=== PATIENT | male | born 1940 | race Caucasian/White ===

== ENCOUNTER 2018-08-01 10:14 | Emergency (ER) | payer OTHER ==
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
[2018-08-01] MEDS ORDERED: TETANUS & DIPHTHERIA TOX,ADULT 0.5 ML VIAL ONE (12:11)
[2018-08-01 12:21] VITALS: BP 134/72; TEMP 98.1; O2SAT 96
== END 2018-08-01 12:17 | disposition home or self-care (01) ==
LOC: ER 10:14
DX: T24.202A Burn of second degree of unspecified site of left lower limb, except ankle and foot, initial encounter (principal); T31.0 Burns involving less than 10% of body surface; X08.8XXA Exposure to other specified smoke, fire and flames, initial encounter; Y93.9 Activity, unspecified; Y92.009 Unspecified place in unspecified non-institutional (private) residence as the place of occurrence of the external cause; Z23 Encounter for immunization; I10 Essential (primary) hypertension
CPT/HCPCS: 90714; 99283

== ENCOUNTER 2018-08-04 14:30 | Observation (INO) | payer OTHER ==
[2018-08-04 15:31] VITALS: BMI 30.9
[2018-08-04] MEDS ORDERED: INFLUENZA VACCINE (for 3y+) 0.5 ML DOSE IMVAC ONE (16:00)
[2018-08-05 07:00] LABS: Urine Appearance CLEAR; Urine Bilirubin NEGATIVE (NEG); Urine Blood NEGATIVE (NEG); Urine Color YELLOW; Urine Glucose NEGATIVE (NEG); Urine Protein NEGATIVE (NEG); Urine Urobilinogen 0.2 mg/dL (0.2-1.0)
[2018-08-05 07:13] LABS: Urine Microscopic Reflex NO UMIC
[2018-08-05] MEDS ORDERED: ACETAMINOPHEN 500 MG TAB PO PRN (09:35)
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
[2018-08-05] MEDS ORDERED: TRAMADOL HCL 50 MG TAB PO PRN (11:21)
[2018-08-05] MEDS ORDERED: HYDROCODONE/APAP 7.5/325 MG TAB PO PRN (11:21)
[2018-08-05 11:51] LABS: Absolute Lymphocytes (CBC) 1.2 K/uL (0.7-4.9); Absolute Monocytes 0.4 K/uL (0.1-1.3); Absolute Neutrophil 2.9 K/uL (1.8-8.0); Basophils % 1.2 % (0-1.3); Hematocrit 38.9 % (39.6-49.0); Lymphocytes % 25.3 % (15.3-44.8); MCV 90.7 fL (80-100); MPV 9.7 fL (7.6-11.3); RBC Red Blood Cell Count 4.29 M/uL (4.33-5.43)
[2018-08-05] MEDS ORDERED: Levofloxacin500mg IV 500 MG/100 ML BAG IV SCH (12:00)
[2018-08-05 12:30] LABS: Magnesium 2.2 mg/dL (1.8-2.4); Potassium 4.7 mmol/L (3.5-5.1)
[2018-08-05] MEDS ORDERED: VANCOMYCIN 1.75 GM in NA CHLORIDE 0.9% 500 ML IVPB SCH (13:00)
[2018-08-05] MEDS: SILVER SULFADIAZINE 1% 25 GM TOP SCH ×2 (13:13→21:35)
[2018-08-05] MEDS ORDERED: LOSARTAN POTASSIUM 50 MG TABLET PO SCH (21:00)
[2018-08-05] MEDS: FAMOTIDINE 20 MG TAB PO SCH (21:33)
[2018-08-05 23:30] VITALS: O2SAT 96
[2018-08-06 06:12] LABS: Absolute Lymphocytes (CBC) 1.3 K/uL (0.7-4.9); Absolute Monocytes 0.5 K/uL (0.1-1.3); Absolute Neutrophil 3.2 K/uL (1.8-8.0); Basophils % 1.5 % (0-1.3); Eosinophils % 5.2 % (0-4.4); Hematocrit 38.2 % (39.6-49.0); Lymphocytes % 24.1 % (15.3-44.8); MCH 32.5 pg (27.0-35.0); MPV 9.8 fL (7.6-11.3); Monocytes % 9.7 % (3.3-12.3)
[2018-08-06 06:26] LABS: Magnesium 2.3 mg/dL (1.8-2.4); Potassium 4.5 mmol/L (3.5-5.1)
[2018-08-06] MEDS: FAMOTIDINE 20 MG TAB PO SCH (09:00)
[2018-08-06] MEDS ORDERED: LOSARTAN POTASSIUM 50 MG TABLET PO SCH (09:00)
[2018-08-06] MEDS: SILVER SULFADIAZINE 1% 25 GM TOP SCH (09:00)
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
[2018-08-06] MEDS ORDERED: levoFLOXacin 250 MG TAB PO SCH (11:00)
[2018-08-06 12:52] VITALS: BP 137/65; TEMP 97.9
[2018-08-07] MEDS ORDERED: FAMOTIDINE 20 MG TAB PO SCH (09:00)
[2018-08-07] MEDS ORDERED: levoFLOXacin 500 MG TAB PO SCH (09:00)
== END 2018-08-06 12:48 | disposition home or self-care (01) ==
LOC: INTOOBSV 14:39 → 2ND 14:39
PROVIDERS: ADMIT Specialist; ATTEND Specialist
DX: L03.116 Cellulitis of left lower limb (principal); T24.302A Burn of third degree of unspecified site of left lower limb, except ankle and foot, initial encounter; X08.8XXA Exposure to other specified smoke, fire and flames, initial encounter; Y92.007 Garden or yard of unspecified non-institutional (private) residence as the place of occurrence of the external cause; I12.9 Hypertensive chronic kidney disease with stage 1 through stage 4 chronic kidney disease, or unspecified chronic kidney disease; N18.4 Chronic kidney disease, stage 4 (severe); Z95.0 Presence of cardiac pacemaker; Z23 Encounter for immunization
CPT/HCPCS: 36415; 80048 ×2; 81003; 83735 ×2; 84145; 85025 ×2; 93280; G0008; G0378; G0379; Q2035

== ENCOUNTER 2021-06-07 08:27 | Inpatient (IN) | payer OTHER ==
[2021-06-07 09:16] LABS: Protime INR 2.2
[2021-06-07 09:17] LABS: Absolute Lymphocytes (CBC) 0.3 K/uL (0.7-4.9); Basophils % 0.2 % (0-1.3); Hematocrit 39.5 % (39.6-49.0); Lymphocytes % 3.9 % (15.3-44.8); RBC Red Blood Cell Count 4.35 M/uL (4.33-5.43)
[2021-06-07] MEDS ORDERED: METHYLPREDNISOLONE 125 MG INJ ONE (09:23)
[2021-06-07] MEDS ORDERED: NA CHLORIDE 0.9% 2,000 ML ONE (09:23)
--- NOTE | 2021-06-07 09:35 | EDPHYS ---
Physician Documentation [facility] Name: Sam Jaimes Age: 81 yrs Sex: Male : 1940 Arrival Date: 06/07/2021 Time: 08:28 Bed 8 Private [facility]: [facility] Physician Leif Canada HPI: 06/07 08:48 This 81 yrs old Male presents to ER via Ambulatory with complaints of kdr Shortness Of Breath, Fever, Cough. 08:48 The patient has shortness of breath at rest, with light activity. Onset: The kdr symptoms/episode began/occurred gradually, 1 week(s) ago. Duration: The symptoms are continuous, and are steadily getting worse. The patient's shortness of breath is aggravated by coughing, exertion, light activity. Associated signs and symptoms: Pertinent positives: Patient has been ill for about a week. He is unvaccinated. He was seen at urgent care yesterday. He reports that his Covid rapid test was negative at that time. Today he continues to have shortness of breath. He was reporting that his oxygen saturation at home was in the 60s. Initially in the emergency department his saturation was in the low 70s on 4 L. Patient states he does not want to be vaccinated at any time.. Severity of symptoms: At their worst the symptoms were moderate severe incapacitating in the emergency department the symptoms are unchanged. The patient has not experienced similar symptoms in the past. The patient has been recently seen by a physician: The patient has been recently seen at an urgent care, yesterday, for similar complaints. Historical: - Allergies: 09:39 No Known Allergies; ap3 - PMHx: 09:39 Hypertension; ap3 09:39 Pacemaker; ap3 - PSHx: 09:40 left ankle sx; ap3 - Immunization history:: Client reports having NOT received the Covid vaccine. - Social history:: Smoking status: Patient denies any tobacco usage or history of. ROS: 08:48 Constitutional: Negative for fever, chills, and weight loss, Eyes: Negative for injury, kdr pain, redness, and discharge, Neck: Negative for injury, pain, and swelling, Cardiovascular: Negative for chest pain, palpitations, and edema, Abdomen/GI: Negative for abdominal pain, nausea, vomiting, diarrhea, and constipation, Back: Negative for injury and pain, : Negative for injury, bleeding, discharge, and swelling, MS/Extremity: Negative for injury and deformity, Skin: Negative for injury, rash, and discoloration, Neuro: Negative for headache, weakness, numbness, tingling, and seizure activity. Psych: Negative for depression, anxiety, suicide ideation, homicidal ideation, and hallucinations, Allergy/Immunology: Negative for hives, rash, and allergies, Endocrine: Negative for neck swelling, polydipsia, polyuria, polyphagia, and marked weight changes, Hematologic/Lymphatic: Negative for swollen nodes, abnormal bleeding, and unusual bruising. 08:48 Respiratory: Positive for cough, with no reported sputum, dyspnea on exertion, shortness of breath, at rest. wheezing, inspiratory. 08:48 Abdomen/GI: Positive for nausea, Negative for vomiting, diarrhea, constipation, abdominal cramps, abdominal distension. Exam: 08:48 Constitutional: This is a well developed, well nourished patient who is awake, alert, kdr and in mild to moderate distress. Head/Face: Normocephalic, atraumatic. Eyes: Pupils equal round and reactive to light, extra-ocular motions intact. Lids and lashes normal. Conjunctiva and sclera are non-icteric and not injected. Cornea within normal limits. Periorbital areas with no swelling, redness, or edema. Neck: Trachea midline, no thyromegaly or masses palpated, and no cervical lymphadenopathy. Supple, full range of motion without nuchal rigidity, or vertebral point tenderness. No Meningismus. Chest/axilla: Normal chest wall appearance and motion. Nontender with no deformity. No lesions are appreciated. Cardiovascular: Regular rate and rhythm with a normal S1 and S2. No gallops, murmurs, or rubs. Normal PMI, no JVD. No pulse deficits. Abdomen/GI: Soft, non-tender, with normal bowel sounds. No distension or tympany. No guarding or rebound. No evidence of tenderness throughout. Back: No spinal tenderness. No costovertebral tenderness. Full range of motion. Skin: Warm, dry with normal turgor. Normal color with no rashes, no lesions, and no evidence of cellulitis. MS/ Extremity: Pulses equal, no cyanosis. Neurovascular intact. Full, normal range of motion. Neuro: Awake and alert, GCS 15, oriented to person, place, time, and situation. Cranial nerves II-XII grossly intact. Motor strength 5/5 in all extremities. Sensory grossly intact. Cerebellar exam normal. Normal gait. Psych: Awake, alert, with orientation to person, place and time. Behavior, mood, and affect are within normal limits. 08:48 Respiratory: mild respiratory distress is noted, moderate respiratory distress is noted, Respirations: labored breathing, that is mild, Breath sounds: rales, that are mild, are scattered, are located in both bases, are heard diffusely, wheezing: that is mild, that is moderate, is heard in the right posterior upper lobe, right posterior middle lobe and right posterior lower lobe. 08:48 ECG was reviewed by the Attending Physician. kdr Vital Signs: 08:39 BP 128 / 57; Pulse 74; Resp 22; Pulse Ox 61% on R/A; da3 09:33 BP 104 / 53; Pulse 81; Resp 25; Pulse Ox 92% on Non-rebreather mask; Weight 102.06 kg; ap3 MDM: 08:48 Data reviewed: vital signs, nurses notes, lab test result(s), EKG, radiologic studies. kdr 09:34 Patient medically screened. kdr 06/07 08:41 Order name: BMP kdr 08 08:41 Order name: Blood Culture Adult (2) kdr 06/07 08:41 Order name: C-Reactive Protein; Complete Time: 09:56 kdr 06/07 08:41 Order name: CBC with Diff kdr 08 08:41 Order name: D-Dimer; Complete Time: 09:25 kdr 06/07 08:41 Order name: Ferritin; Complete Time: 09:56 kdr 06/07 08:41 Order name: LFT's; Complete Time: 09:56 kdr 06/07 08:41 Order name: Lactate kdr 08 08:41 Order name: Lipase; Complete Time: 09:56 kdr 06/07 08:41 Order name: PT-INR; Complete Time: 09:25 kdr 06/07 08:41 Order name: Procalcitonin; Complete Time: 09:56 kdr 06/07 08:41 Order name: Ptt, Activated; Complete Time: 09:25 kdr 06/07 08:41 Order name: Strep; Complete Time: 09:36 kdr 06/07 08:41 Order name: Troponin (emerg Dept Use Only); Complete Time: 09:56 kdr 06/07 08:41 Order name: Urine Microscopic Only kdr 06/07 08:41 Order name: CXR XRAY; Complete Time: 10:27 kdr 06/07 08:42 Order name: Basic Metabolic Panel; Complete Time: 09:56 EDMS 06/07 09:29 Order name: Throat Culture EDMS 06/07 10:26 Order name: COVID-19/FLU A+B; Complete Time: 10:27 EDMS 06/07 11:20 Order name: C-Reactive Protein EDMS 06/07 11:20 Order name: C-Reactive Protein EDMS 06/07 11:21 Order name: CBC with Automated Diff EDMS 06/07 11:21 Order name: CBC with Automated Diff EDMS 06/07 11:21 Order name: D-Dimer EDMS 06/07 11:21 Order name: D-Dimer EDMS 06/07 11:21 Order name: Ferritin EDMS 06/07 11:21 Order name: Ferritin EDMS 06/07 18:57 Order name: CBC Smear Scan EDMS 06/07 08:41 Order name: EKG; Complete Time: 08:42 kdr 06/07 08:41 Order name: Cardiac monitoring; Complete Time: 09:42 kdr 06/07 08:41 Order name: Droplet/Contact Precautions; Complete Time: 09:42 kdr 06/07 08:41 Order name: EKG - Nurse/Tech; Complete Time: 08:54 kdr 06/07 08:41 Order name: IV Start; Complete Time: 09:21 kdr 06/07 08:41 Order name: Labs collected and sent; Complete Time: 09:21 kdr 06/07 08:41 Order name: O2 Per Protocol; Complete Time: 08:54 kdr 06/07 08:41 Order name: O2 Sat Monitoring; Complete Time: 08:54 kdr 06/07 09:25 Order name: CT Chest For PE Angio kdr 06/07 11:25 Order name: Heart Healthy EDMS EC:48 Rate is 82 beats/min. Rhythm is irregularly irregular, A fib with No ectopy. QRS [place] kdr is Normal. PA interval is normal. QRS interval is normal. QT interval is normal. Clinical impression: Atrial Fibrillation. Administered Medications: 09:00 Drug: SOLU-Medrol (methylPrednisoLONE) 125 mg Route: IVP; Site: right antecubital; ap3 10:26 Follow up: Response: No adverse reaction ap3 09:55 Drug: Rocephin - (cefTRIAXone) 1 grams Route: IVPB; Infused Over: 30 mins; Site: right ap3 antecubital; 09:55 Follow up: Response: No adverse reaction; IV Status: Completed infusion ap3 09:56 Not Given (Physician Discretion): Lovenox (enoxaparin) 1 mg/kg Sub-Q once ap3 10:25 Drug: NS 0.9% 1000 ml Route: IV; Rate: 1 bolus; Site: right antecubital; ap3 10:25 Follow up: IV Status: Completed infusion; IV Intake: 1000ml ap3 10:26 Drug: Ivermectin 12 mg Route: PO; ap3 10:27 Drug: NS 0.9% 1000 ml Route: IV; Rate: 125 ml/hr; Site: right antecubital; ap3 Disposition Summary: 06/07/21 09:34 Hospitalization Ordered Hospitalization Status: Inpatient Admission kdr Provider: Isidro Beard kdr Condition: Serious kdr Problem: new kdr Symptoms: have improved kdr Bed/Room Type: Standard kdr Location: Telemetry/MedSurg (Inpatient)(06/08/21 01:13) cg Room Assignment: [facility](06/08/21 01:15) cg Diagnosis - SARS-associated coronavirus as the cause of diseases classified elsewhere kdr - Other viral pneumonia kdr - Shortness of breath kdr - Acute respiratory failure with hypoxia - 60% on room air at home prior to arrival. kdr 72% on 4 L Forms: - Medication Reconciliation Form kdr - SBAR form kdr Signatures: Dispatcher [employer] EDMS Leif Canada MD MD kdr Vesna Nix, RN RN cg Izzy Singh RN RN ap3 Roosevelt Strickland, RN RN da3 Angélica Wilcox RN RN bs2 Corrections: (The following items were deleted from the chart) 09: 08:42 CORONAVIRUS+MR.LAB.BRZ ordered. EDMS EDMS 09:27 08:42 Influenza Screen (A \T\ B)+BA.LAB.BRZ ordered. EDMS EDMS 10: 08:41 Mack ordered. kdr ap3 11:52 09:34 Telemetry/MedSurg (Inpatient) kdr bs2 11:52 09:34 kdr bs2 06/08 01:13 06/07 11:52 BR ER HOLD bs2 cg 06/08 01:06/07 11:52 ERHOLD- bs2 06/08 01:15 01:[address] [place] [address]
--- NOTE | 2021-06-07 09:35 | ER ---
Nurse's Notes [facility] Name: Sam Jaimes Age: 81 yrs Sex: Male : 1940 Arrival Date: 06/07/2021 Time: 08:28 Bed 8 Private MD: Raisa Clark Diagnosis: SARS-associated coronavirus as the cause of diseases classified elsewhere;Other viral pneumonia;Shortness of breath;Acute respiratory failure with hypoxia-60% on room air at home prior to arrival. 72% on 4 L Presentation: 06/07 08:35 Chief complaint: Patient states: short of breath. Coronavirus screen: Client denies da3 travel out of the [place] in the last 14 days. Ebola Screen: No symptoms or risks identified at this time. Risk Assessment: Do you want to hurt yourself or someone else? Patient reports no desire to harm self or others. 08:35 Method Of Arrival: Ambulatory da3 08:35 Acuity: DARBY 2 da3 09:36 Initial Sepsis Screen: Does the patient meet any 2 criteria? RR > 20 per min. No. ap3 Patient's initial sepsis screen is negative. Does the patient have a suspected source of infection? No. Patient's initial sepsis screen is negative. Onset of symptoms was June 02, 2021. Triage Assessment: 08:38 General: Appears uncomfortable, Behavior is calm. da3 09:37 Respiratory: Onset: The symptoms/episode began/occurred Since Saturday 06/02, the patient ap3 has moderate shortness of breath. 09:38 Respiratory: Reports shortness of breath at rest on exertion labored breathing. ap3 Historical: - Allergies: 09:39 No Known Allergies; ap3 - PMHx: 09:39 Hypertension; ap3 09:39 Pacemaker; ap3 - PSHx: 09:40 left ankle sx; ap3 - Immunization history:: Client reports having NOT received the Covid vaccine. - Social history:: Smoking status: Patient denies any tobacco usage or history of. Screenin:35 Abuse screen: Denies threats or abuse. Nutritional screening: No deficits noted. ap3 Tuberculosis screening: No symptoms or risk factors identified. Fall Risk No fall in past 12 months (0 pts). Secondary diagnosis (15 points) impaired mobility, IV access (20 points). Ambulatory Aid- None/Bed Rest/Nurse Assist (0 pts). Gait- Normal/Bed Rest/Wheelchair (0 pts) Mental Status- Oriented to own ability (0 pts). Total Soni Fall Scale indicates Low Risk Score (25-44 pts). Fall prevention measures have been instituted. Side Rails Up X 2 Placed close to Nursing Station Frequent Obs/Assesments occuring As available Patient and Family Educated on Fall Prevention Program and strategies. Assessment: 08:40 General: Appears distressed, uncomfortable, Behavior is cooperative, appropriate for ap3 age, Reports chills for fever for feeling ill for fatigue for. Pain: Denies pain. Neuro: Level of Consciousness is awake, alert, obeys commands, Oriented to person, place, time, situation, Appropriate for age Lathmaker are weak bilaterally Weakness Gait is unsteady, Speech is normal. Cardiovascular: Rhythm is AFIB. Respiratory: Airway is patent Respiratory effort is even, labored, Respiratory pattern is tachypnea Breath sounds are diminished in left posterior upper lobe, right posterior upper lobe, left posterior lower lobe, right posterior middle lobe and right posterior lower lobe. GI: No signs and/or symptoms were reported involving the gastrointestinal system. : No signs and/or symptoms were reported regarding the genitourinary system. EENT: No signs and/or symptoms were reported regarding the EENT system. Derm: No signs and/or symptoms reported regarding the dermatologic system. Musculoskeletal: Reports numbness in GENERALIZED. Vital Signs: 08:39 BP 128 / 57; Pulse 74; Resp 22; Pulse Ox 61% on R/A; da3 09:33 BP 104 / 53; Pulse 81; Resp 25; Pulse Ox 92% on Non-rebreather mask; Weight 102.06 kg; ap3 ED Course: 08:28 Patient arrived in ED. as 08:28 [facility] is Private Physician. as 08:36 Triage completed. da3 08:39 Leif Canada MD is Attending Physician. kdr 08:40 Izzy Singh, LIU is Primary Nurse. ap3 08:58 Initial lab(s) drawn, by az, sent to lab. First set of blood cultures drawn by az. em1 Inserted saline lock: 20 gauge in right wrist, using aseptic technique. Blood collected. 09:21 EKG done, by appliance repair technician. reviewed by Leif Canada MD. em1 09:31 CXR XRAY In Process Unspecified. EDMS 09:33 Isidro Beard MD is Hospitalizing Provider. kdr 09:36 Arm band placed on right wrist. EKG completed in triage. Results shown to MD. EKG done ap3 per protocol. Performed by ED Staff. Shown to ED physician. 09:38 Patient has correct armband on for positive identification. Bed in low position. Call ap3 light in reach. Side rails up X 1. ekg tech on. Pulse ox on. NIBP on. Door closed. Noise minimized. Warm blanket given. Administered Medications: 09:00 Drug: SOLU-Medrol (methylPrednisoLONE) 125 mg Route: IVP; Site: right antecubital; ap3 10:26 Follow up: Response: No adverse reaction ap3 09:55 Drug: Rocephin - (cefTRIAXone) 1 grams Route: IVPB; Infused Over: 30 mins; Site: right ap3 antecubital; 09:55 Follow up: Response: No adverse reaction; IV Status: Completed infusion ap3 09:56 Not Given (Physician Discretion): Lovenox (enoxaparin) 1 mg/kg Sub-Q once ap3 10:25 Drug: NS 0.9% 1000 ml Route: IV; Rate: 1 bolus; Site: right antecubital; ap3 10:25 Follow up: IV Status: Completed infusion; IV Intake: 1000ml ap3 10:26 Drug: Ivermectin 12 mg Route: PO; ap3 10:27 Drug: NS 0.9% 1000 ml Route: IV; Rate: 125 ml/hr; Site: right antecubital; ap3 Intake: 10:25 IV: 1000ml; Total: 1000ml. ap3 Outcome: 09:34 Decision to Hospitalize by Provider. kdr 08 02:31 Patient left the ED. sg2 Signatures: Dispatcher [employer] EDMS Leif Canada MD MD kdr Alley Bowen Eric em1 Franklyn Nix, RN RN sg2 Izzy Singh RN RN ap3 Roosevelt Strickland, RN RN da3
[2021-06-07 09:47] LABS: Bilirubin Direct 0.6 mg/dL (0-0.2); Bilirubin Total 1.9 mg/dL (0.2-1.0); Ferritin 2993.6 ng/mL (26-388); Potassium 3.2 mmol/L (3.5-5.1); Protein, Total 6.6 g/dL (6.4-8.2); Troponin (Emerg Dept Use Only) 0.32 ng/mL (0.0-0.045)
[2021-06-07] MEDS ORDERED: IVERMECTIN 3 MG TABLET PO ONE (10:00)
[2021-06-07] MEDS ORDERED: CEFTRIAXONE/SWI 1gm 1 GM/10 ML SYR ONE (10:08)
[2021-06-07] MEDS ORDERED: ENOXAPARIN 100 MG/ML SYR SQ ONE (10:08)
--- NOTE | 2021-06-07 10:12 | RAD REPORT ---
EXAM DESCRIPTION: RAD - Chest Single View - 06/07/2021 9:31 am CLINICAL HISTORY: COUGH COMPARISON: None TECHNIQUE: AP portable chest image was obtained 06/07/2021 9:31 am . FINDINGS: Lung volumes are low. Alveolar opacification is present in the right upper lobe abutting t he minor fissure. There is no elevation of the fissure. Medial right base lung parenchymal opacificat ion is present as well. There is mild perihilar opacification on the left. Pacemaker is in place via left subclavian approach. No other tubes or lines seen. Heart and vasculatu re are normal. No measurable pleural effusion and no pneumothorax. No acute bony abnormality seen. No acute aortic findings suspected. IMPRESSION: Right upper lobe pneumonia with suspected patchy pneumonia changes in the left perihilar lung field and medial right base.
[2021-06-07 10:26] LABS: SARS-COV-2 RT PCR POSITIVE (NEGATIVE)
--- NOTE | 2021-06-07 11:08 | EKG ---
Test Date: 2021-06-07 Test Time: 08:48:17 In Flight Refueling System Repairer: AMARILIS MEASUREMENT RESULTS: Intervals: Rate: 82 TN: QRSD: 106 QT: 386 QTc: 450 [place]: P: TN: QRS: -51 T: -64 INTERPRETIVE STATEMENTS: Atrial fibrillation Left anterior fascicular block Possible Anterior infarct, age undetermined ST & T wave abnormality, consider inferolateral ischemia Abnormal ECG Compared to ECG 07/30/2001 01:02:00 Left anterior fascicular block now present Myocardial infarct finding now present ST (T wave) deviation now present Possible ischemia now present Sinus rhythm no longer present AV dual-paced complex(es) or rhythm no longer present Electronically Signed On 06-07-21 11:07:24 CDT by Ramón Castano
[2021-06-07] MEDS ORDERED: ACETAMINOPHEN 325 MG TABLET PO PRN (11:17)
--- NOTE | 2021-06-07 11:17 | P.HP ---
Certification for Inpatient With expected LOS: >2 Midnights Patient will require the following post-hospital care: None Practitioner: I am a practitioner with admitting privileges, knowledge of patient current condition, hospital course, and medical plan of care. Services: Services provided to patient in accordance with Admission requirements found in Title 42 Section 412.3 of the Code of Federal Regulations Patient History Date of Service: 06/07/21 Reason for admission: COVID 19 disease History of Present Illness: 81-year-old male patient who came to the emergency room with complaint of difficulty breathing and some mild cough. He said he has been going on for the past 5 days. He has a history of hypertension and he was worked up in the ER with imaging and covid 19 test. His COVID-19 test result came out positive and he was found to have right upper lung opacification chest x-ray depicting pneumonia. He was started on empiric antibiotic of Rocephin and he was admitted for inpatient care. He denied overt episode of diarrhea, loss of appetite, abdominal pain. He does have cough and shortness of breath. He also has some chills. He was admitted for inpatient care for his COVID-19 disease. Allergies No Known Drug Allergies Allergy (Verified 05/09/15 21:29) Unknown Home medications list reviewed: Yes Home Medications: Levofloxacin [Levaquin] 250 mg PO DAILY #7 tablet 08/06/18 Losartan Potassium [Cozaar*] 50 mg PO BEDTIME #30 tablet 08/06/18 Silver Sulfadiazine [Silvadene 1% Cream] 1 appl TOP BID #1 tube 08/06/18 - Past Medical/Surgical History Diabetic: No -: Hypertension -: History pacemaker placement -: Former tobacco use -: Left ankle surgery with plates and screws -: Pacemaker placement -: Back surgery Psychosocial/ Personal History: Patient is . He has 2 children. He is retired but fairly independent and active - Family History Father -: Diabetes, Cancer Mother -: Heart disease, Diabetes, Stroke Brother -: Cancer - Social History Alcohol use: Yes CD- Drugs: No Caffeine use: Yes Review of Systems General: Fever, Chills, Weakness Eyes: Unremarkable ENT: Unremarkable Respiratory: Cough, Shortness of Breath Cardiovascular: Unremarkable Gastrointestinal: Unremarkable Genitourinary: Unremarkable Musculoskeletal: Unremarkable Integumentary: Unremarkable Neurological: Unremarkable Physical Examination - Vital Signs Blood Pressure: 152/72 - Physical Exam General: Alert, Oriented x3, Cooperative HEENT: Atraumatic, Normocephalic Neck: Supple Respiratory: Normal air movement Cardiovascular: Regular rate/rhythm, Normal S1 S2 Gastrointestinal: Soft and benign Musculoskeletal: No swelling Neurological: Normal speech, Normal strength at 5/5 x4 extr, Cranial nerves 3-12 intact External genitalia: No edema - Studies Laboratory Data (last 24 hrs) 06/07/21 08:58: PT 25.5 H, INR 2.20, APTT 28.0 06/07/21 08:58: Sodium 135 L, Potassium 3.2 L, BUN 41 H, Creatinine 2.10 H, Glucose 141 H, Total Bilirubin 1.9 H, AST 258 H, ALT 166 H, Alkaline Phosphatase 65, Lipase 110 06/07/21 08:41: WBC 6.50, Hgb 13.6, Hct 39.5 L, Plt Count 116 L Microbiology Data (last 24 hrs): 06/07/21 08:58 Throat Group A Streptococcus Rapid Screen - Final Assessment and Plan - Plan COVID 19 disease: Positive COVID-19 test. Empiric antibiotic therapy Rocephin started. Other therapy with zinc, melatonin, vitamin C and dexamethasone started. We will continue routine monitoring of vitals and symptomatology. We will monitor inflammatory markers on daily basis Respiratory failure with hypoxia due to COVID-19 disease: Supplemental oxygen started. We will monitor when off as tolerated Pneumonia: Right upper lung opacification detected on x-ray. Empiric antibiotic of Rocephin started. Will monitor symptomatology and cultures Hypertension: We will monitor vitals bilateral: Continue with hypertensive medications JEYSON vs CKD: Elevated creatinine was 2.10 noted on routine labs. We will dose medications for symmetrical mental filtration and avoid exposure to nephrotoxic agents JEYSON episode is deemed secondary to perhaps COVID-19 disease related pathology. Will follow trend of kidney function. Hypokalemia: Potassium is low at 3.2. We have started repletion. Will monitor closely - Advance Directives Does patient have a Living Will: No Does patient have a Durable POA for Healthcare: No
[2021-06-07] MEDS ORDERED: ONDANSETRON 4 MG/2 ML VIAL IV PRN (11:20)
[2021-06-07] MEDS ORDERED: POTASSIUM 25 MEQ EFFERV TAB PO ONE (11:26)
[2021-06-07] MEDS: ASCORBIC ACID 500 MG TABLET PO SCH ×2 (12:00→21:00)
[2021-06-07] MEDS: ZINC SULFATE 220 MG CAP PO SCH (12:00)
[2021-06-07] MEDS ORDERED: POTASSIUM 25 MEQ EFFERV TAB ONE (12:30)
[2021-06-07] MEDS ORDERED: ZINC SULFATE 220 MG CAP ONE (12:30)
[2021-06-07] MEDS ORDERED: ASCORBIC ACID 500 MG TABLET ONE ×2 (12:30→21:02)
[2021-06-07] MEDS: HEPARIN 5000 UNIT/ML 1 ML VIAL SQ SCH (17:00)
[2021-06-07] MEDS ORDERED: HEPARIN 5000 UNIT/ML 1 ML VIAL ONE (17:50)
[2021-06-07 18:52] LABS: Blood Morphology Comment NOT SEEN (NOT SEEN); Platelet Estimate DECR
[2021-06-07 18:53] LABS: White Blood Cell Scan OK (OK)
[2021-06-07] MEDS: FAMOTIDINE 20 MG/2 ML VIAL IV SCH (21:00)
[2021-06-07] MEDS: MELATONIN 5 MG TABLET PO SCH (21:00)
[2021-06-07] MEDS ORDERED: MELATONIN 5 MG TABLET PO ONE (21:02)
[2021-06-07] MEDS ORDERED: FAMOTIDINE 20 MG TAB ONE (21:03)
[2021-06-08] MEDS: HEPARIN 5000 UNIT/ML 1 ML VIAL SQ SCH ×3 (01:00→16:16)
[2021-06-08] MEDS ORDERED: HEPARIN 5000 UNIT/ML 1 ML VIAL ONE (01:11)
[2021-06-08] MEDS: BENZONATATE 100 MG CAP PO PRN ×3 (01:18→16:17)
[2021-06-08] MEDS ORDERED: BENZONATATE 100 MG CAP PO ONE (01:37)
[2021-06-08 04:38] LABS: Absolute Lymphocytes (CBC) 0.3 K/uL (0.7-4.9); Basophils % 0.2 % (0-1.3); Hematocrit 40.5 % (39.6-49.0); Lymphocytes % 3.7 % (15.3-44.8); MPV 10.1 fL (7.6-11.3); RBC Red Blood Cell Count 4.44 M/uL (4.33-5.43)
[2021-06-08 07:58] LABS: Ferritin 2581.5 ng/mL (26-388)
[2021-06-08] MEDS: CEFTRIAXONE/SWI 1gm 1 GM/10 ML SYR IV SCH (08:58)
[2021-06-08] MEDS: ZINC SULFATE 220 MG CAP PO SCH (08:58)
[2021-06-08] MEDS: ASCORBIC ACID 500 MG TABLET PO SCH ×2 (08:58→22:16)
[2021-06-08] MEDS: FAMOTIDINE 20 MG/2 ML VIAL IV SCH ×2 (08:58→22:17)
[2021-06-08] MEDS ORDERED: BARICITINIB 2 MG TABLET PO SCH (09:00)
[2021-06-08] MEDS ORDERED: dexAMETHasone 10 MG/ML VIAL IV SCH (09:00)
[2021-06-08 12:59] VITALS: BMI 31.2
[2021-06-08] MEDS ORDERED: FUROSEMIDE 20 MG/ 2ML VIAL IV ONE (18:14)
--- NOTE | 2021-06-08 18:15 | P.PN ---
Subjective Date of Service: 06/08/21 Patient states that he does not have COVID-19 pneumonia. He believes he has heart failure. He believes that his infection is not real. At this time, will continue with treatment and monitor his oxygenation. Continue with CPAP therapy. Review of Systems 10-point ROS is otherwise unremarkable Physical Examination - Vital Signs Temperature: 97.6 F Blood Pressure: 141/85 Pulse: 59 Respirations: 28 Pulse Ox (%): 91 - Physical Exam General: Alert, In no apparent distress, Oriented x3, Other (Continue with CPAP) Respiratory: Diminished Cardiovascular: Regular rate/rhythm, Normal S1 S2, No murmurs Gastrointestinal: Normal bowel sounds, Soft and benign, Non-distended, No tenderness Musculoskeletal: No clubbing, No swelling, No tenderness Neurological: Cranial nerves 3-12 intact - Studies Laboratory Data (last 24 hrs) 06/07/21 08:41: WBC 6.50, Hgb 13.6, Hct 39.5 L, Plt Count 116 L Medications List Reviewed: Yes Assessment & Plan - Problems (Diagnosis) (1) Pneumonia due to COVID-19 virus Current Visit: Yes Status: Acute (2) Elevated LFTs Current Visit: Yes Status: Acute (3) JEYSON (acute kidney injury) Current Visit: Yes Status: Acute (4) Elevated troponin Current Visit: Yes Status: Acute - Plan Continue with plan of care as mentioned below: 1. Continue with IV steroids 2. Monitor inflammatory markers 3. Repeat chest x-ray 4. O2 per protocol 5. Pulmonary consultation 6. Continue with albuterol inhaler therapy; 7. Echocardiogram 8. continue monitoring renal function and abdominal ultrasound pending 9. GI and DVT prophylaxis - Advance Directives Does patient have a Living Will: No Does patient have a Durable POA for Healthcare: No
[2021-06-08] MEDS: dexAMETHasone 4 MG/ML VIAL IV SCH (18:32)
[2021-06-08] MEDS ORDERED: ENOXAPARIN 100 MG/ML SYR SQ SCH ×2 (20:00→21:00)
[2021-06-08 20:58] LABS: Potassium 4.5 mmol/L (3.5-5.1)
[2021-06-08 20:59] LABS: Albumin 3.2 g/dL (3.4-5.0); Protein, Total 6.9 g/dL (6.4-8.2)
[2021-06-08 21:01] LABS: Troponin I 0.13 ng/mL (0.0-0.045)
[2021-06-08 21:14] LABS: Urine Appearance CLOUDY (Clear); Urine Bilirubin NEGATIVE (Negative); Urine Blood 2+ (Negative); Urine Color YELLOW (Yellow); Urine Glucose NEGATIVE (Negative); Urine Protein 1+ (Negative); Urine Urobilinogen 0.2 mg/dL (0.2-1.0); Urine pH 5.5 (5.0-7.0)
[2021-06-08 21:55] LABS: Urine Bacteria <20 /HPF (NONE SEEN)
[2021-06-08] MEDS: BENZONATATE 100 MG CAP PO SCH (22:16)
[2021-06-08] MEDS: MELATONIN 5 MG TABLET PO SCH (22:16)
[2021-06-09] MEDS: ALBUTEROL INHALER 60 PUFF/8 GM IH SCH ×2 (02:00→20:00)
[2021-06-09 04:13] LABS: Absolute Lymphocytes (CBC) 0.3 K/uL (0.7-4.9); Basophils % 0.2 % (0-1.3); Hematocrit 39.3 % (39.6-49.0); MPV 10.2 fL (7.6-11.3); RBC Red Blood Cell Count 4.36 M/uL (4.33-5.43)
[2021-06-09 04:50] LABS: Bilirubin Total 1.1 mg/dL (0.2-1.0); Magnesium 2.4 mg/dL (1.8-2.4); Phosphorus 3.9 mg/dL (2.5-4.9); Potassium 4.2 mmol/L (3.5-5.1); Protein, Total 6.5 g/dL (6.4-8.2)
[2021-06-09] MEDS: BENZONATATE 100 MG CAP PO SCH ×4 (06:00→16:34)
--- NOTE | 2021-06-09 07:40 | RAD REPORT ---
EXAM DESCRIPTION: RAD - Chest Single View - 06/09/2021 7:15 am CLINICAL HISTORY: pneumonia COMPARISON: June 07 TECHNIQUE: AP portable chest image was obtained 06/09/2021 7:15 am . FINDINGS: Right upper lobe pneumonia findings are similar or fractionally improved compared to the p rior study. Right lower lung field and left lung field interstitial and alveolar opacities are simila r or slightly progressive. Differences in film technique and equipment utilized may account for the d ifferential appearance. Cardiomegaly is present. Vasculature is prominent but not clearly different. The left-side pacemaker is in place. No new tube or line. No acute bony abnormality seen. No acute aortic findings suspected . IMPRESSION: Technical differences may account for the apparent increased interstitial and alveolar o pacification. Patient can be monitored for any evidence of developing failure or volume overload. Right upper lobe pneumonia is similar or fractionally improved from prior day imaging.
[2021-06-09] MEDS: ENOXAPARIN 100 MG/ML SYR SQ SCH (09:00)
--- NOTE | 2021-06-09 09:47 | RAD REPORT ---
EXAM DESCRIPTION: US - Abdomen Exam Complete - 06/09/2021 9:31 am CLINICAL HISTORY: elevated LFTs COMPARISON: No comparisons FINDINGS: No gallbladder dilatation. No gallstones, wall thickening or pericholecystic fluid. Common bile duct is normal with no common duct stone identified. Liver is prominent at 18-19 cm with no capsule nodularity or focal lesion. Liver parenchyma is slight ly increased in echogenicity and mild fatty infiltration is suspected. Doppler evaluation shows no po rtal vein abnormality. Spleen is 11 cm with no focal abnormality. The pancreas is obscured by bowel gas. No hydronephrosis or suspicious mass in either kidney. Small right renal cyst is present. Aorta and IVC are obscured by bowel gas. No ascites identified. IMPRESSION: No gallbladder or biliary tree abnormality identifiable. Suspected mild diffuse fatty infiltration of a prominent liver measuring 18-19 cm. No focal lesions s een. Pancreas, aorta and IVC are obscured by bowel and cannot be assessed.
[2021-06-09] MEDS: ZINC SULFATE 220 MG CAP PO SCH (10:16)
[2021-06-09] MEDS: ASCORBIC ACID 500 MG TABLET PO SCH ×2 (10:16→21:42)
[2021-06-09] MEDS: CEFTRIAXONE/SWI 1gm 1 GM/10 ML SYR IV SCH (10:16)
[2021-06-09] MEDS: dexAMETHasone 4 MG/ML VIAL IV SCH ×2 (10:16→21:42)
[2021-06-09] MEDS: FAMOTIDINE 20 MG/2 ML VIAL IV SCH ×2 (10:16→21:42)
[2021-06-09] MEDS: AZITHROMYCIN IV 250 MG in NA CHLORIDE 0.9% 250 ML IVPB SCH (10:18)
--- NOTE | 2021-06-09 18:18 | P.CNS ---
Chief Complaint: COVID 19 disease History of Present Illness: Pt is an 81 y/o male with past medical hx of hypertension, congestive heart failure presenting with complaints of progressive shortness of breath. Work up did reveal covid pneumonia. Pt denies any chest pain, fatigue.Pt was noted to have elevated cretainine on admission 1.67 with baseline creatinine from hx of 1.3 to 1.5. Renal has been consulted for JEYSON Allergies No Known Drug Allergies Allergy (Verified 05/09/15 21:29) Unknown Home Medications: Ascorbic Acid [Vitamin C] 10,000 mg PO DAILY 06/08/21 Cholecalciferol (Vitamin D3) [Vitamin D3] 1,000 unit PO DAILY 06/08/21 Hydroxychloroquine [Plaquenil] 200 mg PO DAILY 06/08/21 Losartan Potassium [Cozaar*] 12.5 mg PO DAILY 06/08/21 Rivaroxaban [Xarelto] 20 mg PO DAILY 06/08/21 Vit B12/Levomefolate/Vit B6/B2 [l-Methyl-Mc Tablet] 1 each PO DAILY 06/08/21 Zinc 50 mg PO DAILY 06/08/21 - Past Medical/Surgical History Diabetic: No -: Hypertension -: History pacemaker placement -: Former tobacco use -: Left ankle surgery with plates and screws -: Pacemaker placement -: Back surgery Psychosocial/ Personal History: Patient is . He has 2 children. He is retired but fairly independent and active - Family History Father Medical History: Diabetes, Cancer Mother Medical History: Heart disease, Diabetes, Stroke Brother Medical History: Cancer - Social History Smoking Status: Former smoker Alcohol use: Yes CD- Drugs: No Caffeine use: Yes Place of Residence: Home Review of Systems General: Fever, Chills, Sweats, Weakness, Malaise, Other, As per HPI, Unremarkable Eyes: Pain, Vision Change, Conjunctivae Inflammation, Eyelid Inflammation, Redness, Other, As per HPI, Unremarkable ENT: Ear Pain, Ear Discharge, Nose Pain, Nose Discharge, Nose Congestion, Mouth Pain, Mouth Swelling, Throat Pain, Throat Swelling, Other, As per HPI, Unremarkable Respiratory: Shortness of Breath Physical Examination Temp Pulse Resp BP Pulse Ox 97.4 F 60 26 H 167/80 H 99 06/09/21 16:00 06/09/21 16:00 06/09/21 16:00 06/09/21 16:00 06/09/21 16:00 General: Alert, In no apparent distress HEENT: Atraumatic, PERRLA, Mucous membr. moist/pink, EOMI, Sclerae nonicteric Neck: Supple, 2+ carotid pulse no bruit, No LAD, Without JVD or thyroid abnormality Respiratory: Diminished Cardiovascular: Regular rate/rhythm, Normal S1 S2 Gastrointestinal: Normal bowel sounds, No tenderness Musculoskeletal: No tenderness Integumentary: No rashes Conclusions/Impression: Problems JEYSON most likely covid atn Covid pneumonia Hypertension Acute hypoxic respiratory failure Plan Kidney function improving Maintain maps >65 Strict i/o Continue oxygen support Supportive management for covid Thank you for this interesting consult. Will continue to follow
[2021-06-09] MEDS: MELATONIN 5 MG TABLET PO SCH (21:42)
[2021-06-10] MEDS: BENZONATATE 100 MG CAP PO SCH ×5 (00:18→17:15)
[2021-06-10] MEDS: ALBUTEROL INHALER 60 PUFF/8 GM IH SCH ×4 (02:00→20:00)
[2021-06-10] MEDS: HYDROCODONE/CHLORPHEN 5 ML/OSYR PO PRN ×2 (06:11→16:45)
[2021-06-10] MEDS: AZITHROMYCIN IV 250 MG in NA CHLORIDE 0.9% 250 ML IVPB SCH (09:00)
[2021-06-10] MEDS: ZINC SULFATE 220 MG CAP PO SCH (09:00)
[2021-06-10] MEDS: ASCORBIC ACID 500 MG TABLET PO SCH ×2 (09:00→21:48)
[2021-06-10] MEDS: ENOXAPARIN 100 MG/ML SYR SQ SCH (09:00)
[2021-06-10] MEDS: FAMOTIDINE 20 MG/2 ML VIAL IV SCH ×2 (09:00→21:48)
[2021-06-10] MEDS: dexAMETHasone 4 MG/ML VIAL IV SCH ×2 (09:00→21:48)
[2021-06-10] MEDS: CEFTRIAXONE/SWI 1gm 1 GM/10 ML SYR IV SCH (09:00)
--- NOTE | 2021-06-10 10:45 | P.PN ---
Date of Service: 06/09/21 Subjective Patient doing much better. Weaning down CPAP mode. Weaning down FiO2. Review of Systems 10-point ROS is otherwise unremarkable Physical Examination - Vital Signs Reviewed - Physical Exam General: Alert, In no apparent distress, Oriented x3, Other (Continue with CPAP) Respiratory: Diminished Cardiovascular: Regular rate/rhythm, Normal S1 S2, No murmurs Gastrointestinal: Normal bowel sounds, Soft and benign, Non-distended, No tenderness Musculoskeletal: No clubbing, No swelling, No tenderness Neurological: No focal deficits Assessment & Plan - Problems (Diagnosis) (1) Pneumonia due to COVID-19 virus Current Visit: Yes Status: Acute (2) Elevated LFTs Current Visit: Yes Status: Acute (3) JEYSON (acute kidney injury) Current Visit: Yes Status: Acute (4) Elevated troponin Current Visit: Yes Status: Acute - Plan Continue with plan of care as mentioned below: 1. Continue with IV steroids 2. Monitor inflammatory markers 3. Repeat chest x-ray 4. O2 per protocol 5. Pulmonary consultation still pending 6. Continue with albuterol inhaler therapy; 7. Echocardiogram pending 8. Renal function improving. Abdominal ultrasound with no significant abnormalities 9. GI and DVT prophylaxis - Advance Directives Does patient have a Living Will: No Does patient have a Durable POA for Healthcare: No
--- NOTE | 2021-06-10 10:45 | P.PN ---
Date of Service: 06/10/21 Subjective Patient's RV pressure elevated; concerning for PE; Severe pulmonary HTN Review of Systems 10-point ROS is otherwise unremarkable Physical Examination - Vital Signs Reviewed - Physical Exam General: Alert, In no apparent distress, Oriented x3, continue with CPAP Respiratory: Diminished Cardiovascular: Regular rate/rhythm, Normal S1 S2, No murmurs Gastrointestinal: Normal bowel sounds, Soft and benign, Non-distended, No tenderness Musculoskeletal: No clubbing, No swelling, No tenderness Neurological: No focal deficits Assessment & Plan - Problems (Diagnosis) (1) Pneumonia due to COVID-19 virus Current Visit: Yes Status: Acute (2) Elevated RV pressure/severe pulmonary HTN Current Visit: Yes Status: Acute (3) JEYSON (acute kidney injury) Current Visit: Yes Status: Acute (4) Elevated troponin Current Visit: Yes Status: Acute - Plan Continue with plan of care as mentioned below: 1. Continue with IV steroids 2. Monitor inflammatory markers 3. Repeat chest x-ray 4. O2 per protocol 5. Pulmonary consultation still pending 6. Continue with albuterol inhaler therapy; 7. Echocardiogram pending 8. Renal function improving. Abdominal ultrasound with no significant abnormalities 9. GI and DVT prophylaxis - Advance Directives Does patient have a Living Will: No Does patient have a Durable POA for Healthcare: No
--- NOTE | 2021-06-10 14:18 | ECHO ---
HEIGHT: 5 ft 10 in WEIGHT: 228 lb 4.8 oz DATE OF STUDY: 06/10/[address]: Lopez Grewal MD 2-DIMENSIONAL: YES M.MODE: YES DOPPLER: YES COLOR FLOW: YES TDS: NO PORTABLE: NO DEFINITY: NO BUBBLE STUDY: NO DIAGNOSIS: LEFT VENTRICULAR FUNCTION CARDIAC HISTORY: CATHERIZATION: NO SURGERY: NO PROSTHETIC VALVE: NO PACEMAKER: YES MEASUREMENTS (cm) DIASTOLIC (NORMALS) SYSTOLIC (NORMALS) IVSd 1.4 (0.6-1.2) LA Diam 3.5 (1.9-4.0) LVEF 51% LVIDd 3.8 (3.5-5.7) LVIDs 2.9 (2.0-3.5) %FS 26% LVPWd 1.3 (0.6-1.2) Ao Diam 3.1 (2.0-3.7) 2 DIMENSIONAL ASSESSMENT: RIGHT ATRIUM: NORMAL LEFT ATRIUM: NORMAL RIGHT VENTRICLE: NORMAL LEFT VENTRICLE: BORDERLINE FUNCTION TRICUSPID VALVE: MITRAL VALVE: PULMONIC VALVE: NORMAL AORTIC VALVE: NORMAL PERICARDIAL EFFUSION: NONE AORTIC ROOT: NORMAL LEFT VENTRICULAR WALL MOTION: MILD GLOBAL HYPOKINESIS. DOPPLER/COLOR FLOW: SEE BELOW. COMMENTS: LOW NORMAL LEFT VENTRICULAR EJECTION FRACTION 50-55%. MILD TO MODERATE TRICUSPID REGURGITATION. SEVERE PLUMONARY HYPERTENSION WITH RIGHT VENTRICULAR SYSTOLIC PRESSURE >60 mmHg. DIASTOLIC DYSFUNCTION. TECHNOLOGIST: Koki AN
[2021-06-10] MEDS ORDERED: LOSARTAN POTASSIUM 50 MG TABLET PO SCH (19:55)
[2021-06-10] MEDS ORDERED: HYDRALAZINE HCL 20 MG/ML VIAL ONE (21:34)
[2021-06-10] MEDS: MELATONIN 5 MG TABLET PO SCH (21:48)
[2021-06-10] MEDS: HYDRALAZINE HCL 20 MG/ML VIAL IV PRN (21:49)
[2021-06-11] MEDS: BENZONATATE 100 MG CAP PO SCH ×4 (03:59→17:12)
[2021-06-11] MEDS: HYDROCODONE/CHLORPHEN 5 ML/OSYR PO PRN (04:34)
[2021-06-11] MEDS: HYDRALAZINE HCL 20 MG/ML VIAL IV PRN ×2 (04:34→20:55)
[2021-06-11] MEDS ORDERED: LORazepam 2 MG/ML VIAL IV ONE ×2 (05:46→23:09)
[2021-06-11 06:06] LABS: Absolute Lymphocytes (CBC) 0.3 K/uL (0.7-4.9); Basophils % 0.3 % (0-1.3); Hematocrit 42.5 % (39.6-49.0); Lymphocytes % 2.1 % (15.3-44.8); MPV 10.2 fL (7.6-11.3); RBC Red Blood Cell Count 4.64 M/uL (4.33-5.43)
[2021-06-11] MEDS ORDERED: LORazepam 2 MG/ML VIAL ONE (06:16)
[2021-06-11 06:27] LABS: C-Reactive Protein 55.6 mg/L (<3.00); Ferritin 1894.3 ng/mL (26-388); Magnesium 2.9 mg/dL (1.8-2.4)
[2021-06-11 07:53] LABS: Blood Morphology Comment NOT SEEN (NOT SEEN); Platelet Estimate DECR
[2021-06-11] MEDS: ALBUTEROL INHALER 60 PUFF/8 GM IH SCH (08:00)
[2021-06-11] MEDS: CEFTRIAXONE/SWI 1gm 1 GM/10 ML SYR IV SCH (08:57)
[2021-06-11] MEDS: ASCORBIC ACID 500 MG TABLET PO SCH ×2 (08:57→20:54)
[2021-06-11] MEDS: AZITHROMYCIN IV 250 MG in NA CHLORIDE 0.9% 250 ML IVPB SCH (08:57)
[2021-06-11] MEDS: ZINC SULFATE 220 MG CAP PO SCH (08:57)
[2021-06-11] MEDS: FAMOTIDINE 20 MG/2 ML VIAL IV SCH (08:57)
[2021-06-11] MEDS: ENOXAPARIN 100 MG/ML SYR SQ SCH (08:57)
[2021-06-11] MEDS: dexAMETHasone 4 MG/ML VIAL IV SCH (08:57)
[2021-06-11] MEDS ORDERED: FUROSEMIDE 40 MG/4 ML VIAL IV ONE (12:37)
[2021-06-11] MEDS: ALBUTEROL 2.5 MG/3 ML NEB SOL NEB SCH ×2 (15:11→19:25)
--- NOTE | 2021-06-11 18:48 | P.PN ---
Subjective Date of Service: 06/10/21 Chief Complaint: COVID 19 disease Still very short of breath Physical Examination - Vital Signs Temperature: 98.4 F Blood Pressure: 161/73 Pulse: 74 Respirations: 16 Pulse Ox (%): 90 - Physical Exam General: Alert, In no apparent distress HEENT: Atraumatic, PERRLA, EOMI Neck: Supple, JVD not distended Respiratory: Diminished Cardiovascular: Regular rate/rhythm, Normal S1 S2 Gastrointestinal: Normal bowel sounds, No tenderness Musculoskeletal: No tenderness Integumentary: No rashes Neurological: Normal speech, Normal tone, Normal affect Lymphatics: No axilla or inguinal lymphadenopathy - Studies Medications List Reviewed: Yes Assessment & Plan Physician Review Additional Text: Problems JEYSON most likely covid atn Covid pneumonia Hypertension Acute hypoxic respiratory failure Plan Kidney function improving Maintain maps >65 Strict i/o Continue oxygen support Supportive management for covid Will continue to follow
--- NOTE | 2021-06-11 18:51 | P.PN ---
Subjective Date of Service: 06/11/21 Chief Complaint: COVID 19 disease Still very short of breath Physical Examination - Vital Signs Temperature: 98.4 F Blood Pressure: 161/73 Pulse: 74 Respirations: 16 Pulse Ox (%): 90 - Physical Exam General: Alert, In no apparent distress HEENT: Atraumatic, PERRLA, EOMI Neck: Supple, JVD not distended Respiratory: Diminished Cardiovascular: Regular rate/rhythm, Normal S1 S2 Gastrointestinal: Normal bowel sounds, No tenderness Musculoskeletal: No tenderness Integumentary: No rashes Neurological: Normal speech, Normal tone, Normal affect - Studies Medications List Reviewed: Yes Assessment & Plan Physician Review Additional Text: Problems JEYSON most likely covid atn Covid pneumonia Hypertension Acute hypoxic respiratory failure Plan Kidney function improving Maintain maps >65 Strict i/o Continue oxygen support Supportive management for covid Will continue to follow
[2021-06-11] MEDS: BUDESONIDE 0.5 MG/2 ML NEB NEB SCH (19:25)
[2021-06-11] MEDS: IPRATROPIUM BROM 0.5MG/2.5ML NEB SCH (20:00)
[2021-06-11] MEDS: MELATONIN 5 MG TABLET PO SCH (20:54)
[2021-06-11] MEDS ORDERED: dexAMETHasone 4 MG/ML VIAL IV SCH (21:00)
[2021-06-12] MEDS: ALBUTEROL 2.5 MG/3 ML NEB SOL NEB SCH ×3 (01:10→08:00)
[2021-06-12] MEDS: IPRATROPIUM BROM 0.5MG/2.5ML NEB SCH ×2 (01:10→08:00)
[2021-06-12 02:47] VITALS: O2SAT 86
[2021-06-12 04:04] VITALS: BP 168/96; TEMP 97.3
[2021-06-12] MEDS: BENZONATATE 100 MG CAP PO SCH ×2 (05:53)
[2021-06-12 06:21] LABS: Absolute Lymphocytes (CBC) 0.4 K/uL (0.7-4.9); Basophils % 0.1 % (0-1.3); Hematocrit 44.7 % (39.6-49.0); MPV 10.3 fL (7.6-11.3); RBC Red Blood Cell Count 4.78 M/uL (4.33-5.43)
[2021-06-12] MEDS: HYDRALAZINE HCL 20 MG/ML VIAL IV PRN (06:31)
[2021-06-12 07:06] LABS: C-Reactive Protein 45.2 mg/L (<3.00); Ferritin 2219.4 ng/mL (26-388)
[2021-06-12 07:09] LABS: Magnesium 3.3 mg/dL (1.8-2.4); Potassium 4.5 mmol/L (3.5-5.1)
[2021-06-12] MEDS: BUDESONIDE 0.5 MG/2 ML NEB NEB SCH (08:00)
--- NOTE | 2021-06-12 08:57 | P.PN ---
Date of Service: 06/11/21 Subjective Patient agitated and continues to pull off his mass. Patient not doing well. On full-dose anti coagulation. Spoke with family and patient is a [id number]. Review of Systems 10-point ROS is otherwise unremarkable Physical Examination - Vital Signs Reviewed - Physical Exam General: Alert, In no apparent distress, Oriented x2, continue with CPAP Respiratory: Diminished Cardiovascular: Regular rate/rhythm, Normal S1 S2, No murmurs Gastrointestinal: Normal bowel sounds, Soft and benign, Non-distended, No tenderness Musculoskeletal: No clubbing, No swelling, No tenderness Neurological: No focal deficits Assessment & Plan - Problems (Diagnosis) (1) Pneumonia due to COVID-19 virus Current Visit: Yes Status: Acute (2) Elevated RV pressure/severe pulmonary HTN Current Visit: Yes Status: Acute (3) JEYSNO (acute kidney injury) Current Visit: Yes Status: Acute (4) Elevated troponin Current Visit: Yes Status: Acute - Plan Continue with plan of care as mentioned below: 1. Continue with IV steroids 2. Monitor volume status 3. Repeat chest x-ray if symptoms worsening 4. O2 per protocol 5. Patient do not intubate with family does want CPR and cardioversion if necessary 6. Continue with albuterol inhaler therapy; 7. Echocardiogram reviewed. On full-dose anti coagulation. Concern for DVT. However, patient unstable for transfer so will treat him with anti coagulation. Prognosis is poor and family has decided to proceed with [id number]. I spoke to the in detail regarding this. She does want us to try to resuscitate him if his heart stops. 8. Renal function improving. Abdominal ultrasound with no significant abnormalities 9. GI and DVT prophylaxis - Advance Directives Does patient have a Living Will: No Does patient have a Durable POA for Healthcare: No
--- NOTE | 2021-06-12 08:58 | P.DS ---
Discharge Date: 06/12/21 Disposition: Reason for Admission: COVID 19 disease - Problems (1) Pneumonia due to COVID-19 virus Status: Acute (2) Elevated LFTs Status: Acute (3) JEYSON (acute kidney injury) Status: Acute (4) Elevated troponin Status: Acute Brief History of Present Illness: Patient is an 81-year-old male patient who came to the emergency room with complaint of difficulty breathing and some mild cough. He said he has been going on for the past 5 days. He has a history of hypertension and he was worked up in the ER with imaging and covid 19 test. His COVID-19 test result came out positive and he was found to have right upper lung opacification chest x-ray depicting pneumonia. He was started on empiric antibiotic of Rocephin and he was admitted for inpatient care. He denied overt episode of diarrhea, loss of appetite, abdominal pain. He does have cough and shortness of breath. He also has some chills. He was admitted for inpatient care for his COVID-19 disease. Hospital Course: Patient continued to decline during hospitalization. Family said they did not want him on a ventilator. Patient became asystole and code was called. Patient passed await after attempt at resuscitation was unsuccessful. Emergency room physician pronounced the patient. Home Medications: Ascorbic Acid [Vitamin C] 10,000 mg PO DAILY 06/08/21 Cholecalciferol (Vitamin D3) [Vitamin D3] 1,000 unit PO DAILY 06/08/21 Hydroxychloroquine [Plaquenil] 200 mg PO DAILY 06/08/21 Losartan Potassium [Cozaar*] 12.5 mg PO DAILY 06/08/21 Rivaroxaban [Xarelto] 20 mg PO DAILY 06/08/21 Vit B12/Levomefolate/Vit B6/B2 [l-Methyl-Mc Tablet] 1 each PO DAILY 06/08/21 Zinc 50 mg PO DAILY 06/08/21 Physician Discharge Instructions: Patient Diet: AHA Followup: NONE,NONE [Primary Care Provider] - Time spent managing pt's care (in minutes): 25
[2021-06-12] MEDS ORDERED: FAMOTIDINE 20 MG TAB PO SCH (09:00)
[2021-06-12 10:28] LABS: Blood Morphology Comment NOTED (NOT SEEN); Platelet Estimate DECR; Platelets, Giant FEW PRESENT; Polychromasia 1+
[2021-06-12] MEDS ORDERED: EPINEPHrine 1 MG/10 ML SYR IV ONE (11:14)
[2021-06-12 12:21] LABS: HBsAG Nonreactive (Nonreactive)
== END 2021-06-12 07:10 | disposition expired | DRG 177 ==
LOC: ER 08:27 → ERHOLD 11:21 → 4TH 06-08 01:39
PROVIDERS: ADMIT Internal Medicine Nephrology; ATTEND Internal Medicine Nephrology
PROC: 5A09457 Assistance with Respiratory Ventilation, 24-96 Consecutive Hours, Continuous Positive Airway Pressure (ICD-10-PCS; 2021-06-09)
PROC: 5A12012 Performance of Cardiac Output, Single, Manual (ICD-10-PCS; principal; 2021-06-12)
DX: U07.1 COVID-19 (principal); J12.82 Pneumonia due to coronavirus disease 2019; J96.01 Acute respiratory failure with hypoxia; N17.0 Acute kidney failure with tubular necrosis; I27.20 Pulmonary hypertension, unspecified; R77.8 Other specified abnormalities of plasma proteins; R79.89 Other specified abnormal findings of blood chemistry; E87.6 Hypokalemia; I46.9 Cardiac arrest, cause unspecified; I11.0 Hypertensive heart disease with heart failure; I50.810 Right heart failure, unspecified; K74.60 Unspecified cirrhosis of liver; K76.0 Fatty (change of) liver, not elsewhere classified; Z95.0 Presence of cardiac pacemaker; Z66 Do not resuscitate
CPT/HCPCS: 0240U; 36415; 71045; 71275; 76700; 80048; 80053; 80074; 80076; 81001; 82728; 83605; 83690; 83735; 83880; 84100; 84145; 84484; 85025; 85379; 85610; 85730; 86140; 87040; 87070; 87081; 93005; 93306; 94010; 94640; 94660; 94760; 96374; 96375; 99285; J0171; J0360; J0456; J0696; J1100; J1644; J1650; J1940; J2930; J7030; J7050; Q9967